=== PATIENT | female | born 1960 | race Caucasian/White ===

== ENCOUNTER 2017-11-25 10:04 | Inpatient (IN) | payer MEDICARE, OTHER ==
[~2017-11-25] VITALS: Ht 172.7 cm; Wt 104.9 kg
[~2017-11-25 10:04] MED LIST: AMLO5TAB16 PO; CHLO25TA11 PO; DULO60CA64 PO; HYDR-3686 PO; LINA145C PO; LOSA25TA21 PO; TRAZ-143 PO; ZIPR20CA12 PO
[2017-11-25 10:46] LABS: BASOPHILS % (AUTO) 0.3 % (0-1); EOSINOPHILS # (AUTO) 0.1 X10'3 (0-0.9); EOSINOPHILS % (AUTO) 1.4 % (0-6); HEMATOCRIT 44.8 % (35.0-45.0); HEMOGLOBIN 14.9 g/dl (12.0-16.0); LYMPHOCYTES # (AUTO) 1.7 X10'3 (1.1-4.8); LYMPHOCYTES % (AUTO) 33.5 % (21-51); MEAN CORPUSCULAR HEMOGLOBIN 29.2 PG (27.0-31.0); MEAN CORPUSCULAR HGB CONC 33.2 % (33.0-36.5); MEAN PLATELET VOLUME 8.4 FL (7.4-10.4); MONOCYTES # (AUTO) 0.5 X10'3 (0-0.9); MONOCYTES % (AUTO) 8.8 % (2-12); NEUTROPHILS # (AUTO) 2.9 X10'3 (1.8-7.7); PLATELET COUNT 219 X10'3 (140-440); RED BLOOD COUNT 5.09 X10'6 (4.20-5.60); RED CELL DISTRIBUTION WIDTH 13.6 % (11.5-14.5); WHITE BLOOD COUNT 5.2 X10'3 (4.5-11.0)
[2017-11-25 10:58] LABS: PARTIAL THROMBOPLASTIN TIME 25 SECONDS (22-32); PROTHROMBIN TIME 10.5 SECONDS (9.0-12.0)
[2017-11-25 11:05] LABS: ALANINE AMINOTRANSFERASE 17 U/L (12-78); ALBUMIN 3.7 G/DL (3.4-5.0); ALBUMIN/GLOBULIN RATIO 0.9 (1.1-1.5); ALKALINE PHOSPHATASE 62 IU/L (46-116); ANION GAP 10 (8-16); ASPARTATE AMINO TRANSFERASE 7 U/L (10-37); BILIRUBIN,TOTAL 0.6 MG/DL (0.1-1.0); BLOOD UREA NITROGEN 15 MG/DL (7-18); BUN/CREATININE RATIO 15.6 (6.6-38.0); CALCIUM 9.4 MG/DL (8.5-10.1); CHLORIDE 110 MMOL/L (99-107); CREATININE 0.96 MG/DL (0.40-0.90); GLUCOSE 111 MG/DL (70-104); POTASSIUM 3.9 MMOL/L (3.5-5.1); SODIUM 144 MMOL/L (135-145); TOTAL CARBON DIOXIDE 23.6 MMOL/L (24-32); TOTAL PROTEIN 7.8 G/DL (6.4-8.2); eGFR 60 ML/MIN
[2017-11-25 11:08] LABS: TROPONIN I < 0.04 NG/ML (0.0-0.05)
[2017-11-25] MEDS: normal saline 1000ml 1,000 ML IV SCH (12:58)
[2017-11-25] MEDS ORDERED: potassium Cl 20 mEq SR tablet PO PRN (13:00)
[2017-11-25] MEDS ORDERED: ondansetron/PF 4mg/2ml inj IV PRN (13:00)
[2017-11-25] MEDS ORDERED: magnesium Cl slow-release 64mg tablet PO PRN (13:00)
[2017-11-25] MEDS ORDERED: potassium Cl 40MEQ/NS 500ml 500 ML IV PRN ×2 (13:00)
[2017-11-25] MEDS ORDERED: acetaminophen 325mg tablet PO PRN (13:00)
[2017-11-25] MEDS ORDERED: magnesium 2GM in 50ml NS 50 ML IV PRN (13:00)
[2017-11-25] MEDS ORDERED: magnesium 4gm in 100ml NS 100 ML IV PRN (13:00)
[2017-11-25] MEDS ORDERED: mag hydrox/Alum hydrox/simeth 30ml oral suspension PO PRN (13:00)
[2017-11-25 13:43] LABS: CHOL/HDL RATIO 2.3 (0.00-4.99); CHOLESTEROL 115 MG/DL (0-200); HDL CHOLESTEROL 50 MG/DL (35-60); LDL CHOLESTEROL 48 MG/DL (50-100); TRIGLYCERIDES 68 MG/DL (20-135)
[2017-11-25 13:59] LABS: URINE AMPHETAMINE SCREEN NEGATIVE (Neg); URINE BARBITUATE SCREEN NEGATIVE (Neg); URINE BENZODIAZEPINES SCREEN NEGATIVE (Neg); URINE CANNABINOID SCREEN POSITIVE (Neg); URINE COCAINE SCREEN NEGATIVE (Neg); URINE METHADONE SCREEN NEGATIVE (Neg); URINE OPIATE SCREEN NEGATIVE (Neg); URINE PHENCYCLIDINE SCREEN NEGATIVE (Neg)
[2017-11-25 15:25] VITALS: BP 158/99
[2017-11-25 18:00] VITALS: BP 148/80
[2017-11-25] MEDS: losartan 25mg tablet PO SCH (19:42)
[2017-11-25 22:00] VITALS: BP 159/83
[2017-11-26] MEDS: normal saline 1000ml 1,000 ML IV SCH ×4 (01:08→15:04)
[2017-11-26 01:53] VITALS: BP 187/94
[2017-11-26 06:00] VITALS: BP 164/94
[2017-11-26 07:03] LABS: BASOPHILS % (AUTO) 0.4 % (0-1); EOSINOPHILS # (AUTO) 0.1 X10'3 (0-0.9); EOSINOPHILS % (AUTO) 0.9 % (0-6); HEMATOCRIT 42.5 % (35.0-45.0); HEMOGLOBIN 14.2 g/dl (12.0-16.0); LYMPHOCYTES # (AUTO) 1.8 X10'3 (1.1-4.8); MEAN CORPUSCULAR HEMOGLOBIN 29.2 PG (27.0-31.0); MEAN CORPUSCULAR HGB CONC 33.4 % (33.0-36.5); MEAN CORPUSCULAR VOLUME 87.3 FL (78-98); MEAN PLATELET VOLUME 8.4 FL (7.4-10.4); MONOCYTES # (AUTO) 0.7 X10'3 (0-0.9); MONOCYTES % (AUTO) 10.5 % (2-12); NEUTROPHILS # (AUTO) 3.9 X10'3 (1.8-7.7); NEUTROPHILS % (AUTO) 60.2 % (42-75); PLATELET COUNT 202 X10'3 (140-440); RED BLOOD COUNT 4.87 X10'6 (4.20-5.60); RED CELL DISTRIBUTION WIDTH 13.3 % (11.5-14.5); WHITE BLOOD COUNT 6.4 X10'3 (4.5-11.0)
[2017-11-26 07:12] LABS: ALBUMIN 3.5 G/DL (3.4-5.0); ANION GAP 11 (8-16); BLOOD UREA NITROGEN 12 MG/DL (7-18); BUN/CREATININE RATIO 14.5 (6.6-38.0); CALCIUM 9.2 MG/DL (8.5-10.1); CHLORIDE 109 MMOL/L (99-107); CREATININE 0.83 MG/DL (0.40-0.90); GLUCOSE 108 MG/DL (70-104); MAGNESIUM 2.1 MG/DL (1.5-2.4); POTASSIUM 3.4 MMOL/L (3.5-5.1); SODIUM 143 MMOL/L (135-145); TOTAL CARBON DIOXIDE 23.1 MMOL/L (24-32); eGFR 71 ML/MIN
[2017-11-26] MEDS: K and/or MAG REPLACEMENT MC SCH (08:00)
[2017-11-26] MEDS: losartan 25mg tablet PO SCH ×2 (08:43→19:33)
[2017-11-26] MEDS: aspirin 325mg tablet PO SCH (08:44)
[2017-11-26] MEDS: enoxaparin 40mg/0.4ml syringe SUBCUT SCH (08:44)
[2017-11-26] MEDS: chlorthalidone 25mg tablet PO SCH (08:44)
[2017-11-26] MEDS: amLODIPine 5mg tablet PO SCH (08:44)
[2017-11-26] MEDS: potassium Cl 20 mEq SR tablet PO PRN ×2 (08:48→15:17)
[2017-11-26 12:00] VITALS: BP 163/84
[2017-11-26 13:10] VITALS: BP 156/94
[2017-11-26 16:20] VITALS: BP 160/92
[2017-11-26 20:00] VITALS: BP 170/95
[2017-11-27] VITALS (7 sets, daily range): BP systolic 145–171; BP diastolic 89–112
[2017-11-27] MEDS: normal saline 1000ml 1,000 ML IV SCH (02:36)
[2017-11-27 05:47] LABS: BASOPHILS % (AUTO) 0.3 % (0-1); EOSINOPHILS # (AUTO) 0.1 X10'3 (0-0.9); EOSINOPHILS % (AUTO) 0.6 % (0-6); HEMATOCRIT 46.6 % (35.0-45.0); HEMOGLOBIN 15.6 g/dl (12.0-16.0); LYMPHOCYTES % (AUTO) 23.7 % (21-51); MEAN CORPUSCULAR HEMOGLOBIN 29.3 PG (27.0-31.0); MEAN CORPUSCULAR HGB CONC 33.4 % (33.0-36.5); MEAN CORPUSCULAR VOLUME 87.7 FL (78-98); MEAN PLATELET VOLUME 8.5 FL (7.4-10.4); MONOCYTES # (AUTO) 0.9 X10'3 (0-0.9); NEUTROPHILS # (AUTO) 5.5 X10'3 (1.8-7.7); NEUTROPHILS % (AUTO) 64.4 % (42-75); PLATELET COUNT 227 X10'3 (140-440); RED BLOOD COUNT 5.31 X10'6 (4.20-5.60); RED CELL DISTRIBUTION WIDTH 13.8 % (11.5-14.5); WHITE BLOOD COUNT 8.5 X10'3 (4.5-11.0)
[2017-11-27 06:02] LABS: ALBUMIN 3.7 G/DL (3.4-5.0); ANION GAP 13 (8-16); BLOOD UREA NITROGEN 18 MG/DL (7-18); BUN/CREATININE RATIO 18.9 (6.6-38.0); CALCIUM 9.5 MG/DL (8.5-10.1); CHLORIDE 105 MMOL/L (99-107); CREATININE 0.95 MG/DL (0.40-0.90); GLUCOSE 113 MG/DL (70-104); MAGNESIUM 2.1 MG/DL (1.5-2.4); POTASSIUM 3.7 MMOL/L (3.5-5.1); SODIUM 140 MMOL/L (135-145); eGFR 61 ML/MIN
[2017-11-27] MEDS: chlorthalidone 25mg tablet PO SCH (07:46)
[2017-11-27] MEDS: aspirin 325mg tablet PO SCH (07:46)
[2017-11-27] MEDS: amLODIPine 5mg tablet PO SCH (07:46)
[2017-11-27] MEDS: losartan 25mg tablet PO SCH ×2 (07:46→19:30)
[2017-11-27] MEDS: enoxaparin 40mg/0.4ml syringe SUBCUT SCH (07:47)
[2017-11-27] MEDS: K and/or MAG REPLACEMENT MC SCH (08:00)
[2017-11-27] MEDS ORDERED: amLODIPine 5mg tablet PO ONE (10:25)
[2017-11-27] MEDS ORDERED: iohexol 350 MG/ML 50ML vial IV ONE (14:52)
[2017-11-28] VITALS: BP 157/107
[2017-11-28] MEDS: magnesium hydroxide 30ml (MOM) UD suspension PO PRN ×2 (01:01→18:12)
[2017-11-28 06:00] VITALS: BP 158/90
[2017-11-28 06:59] LABS: BASOPHILS % (AUTO) 0.3 % (0-1); EOSINOPHILS # (AUTO) 0.2 X10'3 (0-0.9); EOSINOPHILS % (AUTO) 1.7 % (0-6); HEMATOCRIT 49.2 % (35.0-45.0); HEMOGLOBIN 16.4 g/dl (12.0-16.0); LYMPHOCYTES # (AUTO) 2.5 X10'3 (1.1-4.8); LYMPHOCYTES % (AUTO) 25.4 % (21-51); MEAN CORPUSCULAR HEMOGLOBIN 28.9 PG (27.0-31.0); MEAN CORPUSCULAR HGB CONC 33.2 % (33.0-36.5); MEAN CORPUSCULAR VOLUME 86.9 FL (78-98); MEAN PLATELET VOLUME 8.3 FL (7.4-10.4); NEUTROPHILS # (AUTO) 6.1 X10'3 (1.8-7.7); NEUTROPHILS % (AUTO) 62.6 % (42-75); PLATELET COUNT 269 X10'3 (140-440); RED BLOOD COUNT 5.66 X10'6 (4.20-5.60); RED CELL DISTRIBUTION WIDTH 13.4 % (11.5-14.5); WHITE BLOOD COUNT 9.7 X10'3 (4.5-11.0)
[2017-11-28 07:16] LABS: CLARITY,URINE Clear (Clear); COLOR,URINE Yellow (Yellow); GLUCOSE, URINE Negative (Neg); KETONES,URINE Negative (Neg); LEUKOCYTE ESTERASE ,URINE Moderate (Neg); NITRITES, URINE Negative (Neg); OCCULT BLOOD,URINE Negative (Neg); PROTEIN,URINE Negative (Neg)
[2017-11-28 07:22] LABS: UA COLLECTION TYPE OTHER
[2017-11-28 07:25] LABS: BACTERIA,URINE 1+ /HPF (Neg); MUCUS STRANDS NONE SEEN /LPF (Neg); RBC,URINE NONE SEEN /HPF (0-2); SQUAMOUS EPITHELIAL CELL,UR MODERATE /LPF (FEW)
[2017-11-28 07:40] LABS: ANION GAP 14 (8-16); BLOOD UREA NITROGEN 24 MG/DL (7-18); CALCIUM 10.1 MG/DL (8.5-10.1); CHLORIDE 104 MMOL/L (99-107); CREATININE 1.26 MG/DL (0.40-0.90); GLUCOSE 139 MG/DL (70-104); MAGNESIUM 2.2 MG/DL (1.5-2.4); POTASSIUM 3.6 MMOL/L (3.5-5.1); SODIUM 140 MMOL/L (135-145); TOTAL CARBON DIOXIDE 21.6 MMOL/L (24-32); eGFR 44 ML/MIN
[2017-11-28] MEDS: K and/or MAG REPLACEMENT MC SCH (08:00)
[2017-11-28] MEDS: aspirin 325mg tablet PO SCH (09:12)
[2017-11-28] MEDS: losartan 25mg tablet PO SCH ×2 (09:12→21:37)
[2017-11-28] MEDS: amLODIPine 5mg tablet PO SCH (09:12)
[2017-11-28] MEDS: chlorthalidone 25mg tablet PO SCH (09:12)
[2017-11-28] MEDS: enoxaparin 40mg/0.4ml syringe SUBCUT SCH (09:13)
[2017-11-28 10:00] VITALS: BP 142/93
[2017-11-28 14:54] LABS: C-REACTIVE PROTEIN 0.91 MG/DL (0.0-0.5)
[2017-11-28 15:00] VITALS: BP 137/76
[2017-11-28] MEDS: carVEDilol 3.125mg tablet PO SCH ×2 (15:14→21:37)
[2017-11-28 15:41] LABS: RHEUM FACTOR QUAL REFLEX TITER NEGATIVE (Neg)
[2017-11-29 06:00] VITALS: BP 129/75
[2017-11-29 06:45] LABS: BASOPHILS % (AUTO) 0.2 % (0-1); EOSINOPHILS # (AUTO) 0.1 X10'3 (0-0.9); EOSINOPHILS % (AUTO) 1.4 % (0-6); HEMATOCRIT 46.9 % (35.0-45.0); HEMOGLOBIN 15.5 g/dl (12.0-16.0); LYMPHOCYTES # (AUTO) 2.6 X10'3 (1.1-4.8); LYMPHOCYTES % (AUTO) 26.3 % (21-51); MEAN CORPUSCULAR HEMOGLOBIN 28.9 PG (27.0-31.0); MEAN CORPUSCULAR HGB CONC 33.1 % (33.0-36.5); MEAN CORPUSCULAR VOLUME 87.5 FL (78-98); MEAN PLATELET VOLUME 8.6 FL (7.4-10.4); MONOCYTES # (AUTO) 1.2 X10'3 (0-0.9); MONOCYTES % (AUTO) 11.9 % (2-12); NEUTROPHILS % (AUTO) 60.2 % (42-75); PLATELET COUNT 269 X10'3 (140-440); RED BLOOD COUNT 5.36 X10'6 (4.20-5.60); RED CELL DISTRIBUTION WIDTH 14.1 % (11.5-14.5)
[2017-11-29 06:56] LABS: ALBUMIN 3.8 G/DL (3.4-5.0); ANION GAP 15 (8-16); BLOOD UREA NITROGEN 36 MG/DL (7-18); BUN/CREATININE RATIO 24.8 (6.6-38.0); CHLORIDE 106 MMOL/L (99-107); CREATININE 1.45 MG/DL (0.40-0.90); GLUCOSE 117 MG/DL (70-104); MAGNESIUM 2.4 MG/DL (1.5-2.4); POTASSIUM 3.5 MMOL/L (3.5-5.1); SODIUM 141 MMOL/L (135-145); TOTAL CARBON DIOXIDE 19.9 MMOL/L (24-32); eGFR 37 ML/MIN
[2017-11-29] MEDS: K and/or MAG REPLACEMENT MC SCH (08:00)
[2017-11-29] MEDS: amLODIPine 5mg tablet PO SCH (08:51)
[2017-11-29] MEDS: carVEDilol 3.125mg tablet PO SCH ×2 (08:51→20:37)
[2017-11-29] MEDS: clopidogrel 75mg tablet PO SCH (08:51)
[2017-11-29] MEDS: losartan 25mg tablet PO SCH ×2 (08:52→20:38)
[2017-11-29] MEDS: enoxaparin 40mg/0.4ml syringe SUBCUT SCH (08:52)
[2017-11-29 11:55] VITALS: BP 122/73
[2017-11-29 17:00] VITALS: BP 118/87
[2017-11-29 22:00] VITALS: BP 107/62
[2017-11-30 05:00] VITALS: BP 96/70
[2017-11-30 06:21] LABS: BASOPHILS % (AUTO) 0.3 % (0-1); EOSINOPHILS # (AUTO) 0.1 X10'3 (0-0.9); EOSINOPHILS % (AUTO) 1.7 % (0-6); HEMATOCRIT 42.3 % (35.0-45.0); HEMOGLOBIN 14.1 g/dl (12.0-16.0); LYMPHOCYTES # (AUTO) 2.6 X10'3 (1.1-4.8); MEAN CORPUSCULAR HEMOGLOBIN 29.2 PG (27.0-31.0); MEAN CORPUSCULAR HGB CONC 33.4 % (33.0-36.5); MEAN CORPUSCULAR VOLUME 87.6 FL (78-98); MEAN PLATELET VOLUME 8.3 FL (7.4-10.4); MONOCYTES # (AUTO) 0.9 X10'3 (0-0.9); MONOCYTES % (AUTO) 11.1 % (2-12); NEUTROPHILS # (AUTO) 4.4 X10'3 (1.8-7.7); NEUTROPHILS % (AUTO) 54.9 % (42-75); PLATELET COUNT 236 X10'3 (140-440); RED BLOOD COUNT 4.83 X10'6 (4.20-5.60); RED CELL DISTRIBUTION WIDTH 13.9 % (11.5-14.5)
[2017-11-30 06:55] LABS: ALBUMIN 3.4 G/DL (3.4-5.0); ANION GAP 10 (8-16); BLOOD UREA NITROGEN 60 MG/DL (7-18); BUN/CREATININE RATIO 31.6 (6.6-38.0); CALCIUM 9.2 MG/DL (8.5-10.1); CHLORIDE 101 MMOL/L (99-107); GLUCOSE 97 MG/DL (70-104); MAGNESIUM 2.6 MG/DL (1.5-2.4); POTASSIUM 3.5 MMOL/L (3.5-5.1); SODIUM 137 MMOL/L (135-145); TOTAL CARBON DIOXIDE 25.6 MMOL/L (24-32); eGFR 27 ML/MIN
[2017-11-30] MEDS: K and/or MAG REPLACEMENT MC SCH (08:00)
[2017-11-30] MEDS: carVEDilol 3.125mg tablet PO SCH ×2 (09:39→20:00)
[2017-11-30] MEDS: losartan 25mg tablet PO SCH ×2 (09:39→20:00)
[2017-11-30] MEDS: amLODIPine 5mg tablet PO SCH (09:39)
[2017-11-30] MEDS: clopidogrel 75mg tablet PO SCH (09:41)
[2017-11-30] MEDS: enoxaparin 40mg/0.4ml syringe SUBCUT SCH (09:42)
[2017-11-30 10:00] VITALS: BP 119/70
[2017-11-30] MEDS: duloxetine 30mg CAPSULE.DR PO SCH (11:19)
[2017-11-30] MEDS: levoFLOXACIN 500mg tablet PO SCH (11:19)
[2017-11-30 18:00] VITALS: BP 107/69
[2017-11-30] MEDS: ziprasidone 20mg capsule PO SCH (20:10)
[2017-11-30 22:00] VITALS: BP 125/63
[2017-12-01 05:00] VITALS: BP 141/89
[2017-12-01] MEDS: duloxetine 30mg CAPSULE.DR PO SCH (09:54)
[2017-12-01] MEDS: LACTOBACILLUS RHAMNOSUS GG 15 billion unit sprinkle caps PO SCH (09:54)
[2017-12-01] MEDS: carVEDilol 3.125mg tablet PO SCH ×2 (09:54→20:43)
[2017-12-01] MEDS: ziprasidone 20mg capsule PO SCH ×2 (09:54→20:43)
[2017-12-01] MEDS: losartan 25mg tablet PO SCH ×2 (09:54→20:43)
[2017-12-01] MEDS: clopidogrel 75mg tablet PO SCH (09:55)
[2017-12-01] MEDS: amLODIPine 5mg tablet PO SCH (09:55)
[2017-12-01] MEDS: K and/or MAG REPLACEMENT MC SCH (09:55)
[2017-12-01] MEDS: enoxaparin 40mg/0.4ml syringe SUBCUT SCH (09:56)
[2017-12-01 10:00] VITALS: BP 160/74
[2017-12-01] MEDS: levoFLOXACIN 500mg tablet PO SCH (11:10)
[2017-12-01 18:00] VITALS: BP 127/68
[2017-12-02 05:00] VITALS: BP 122/77
[2017-12-02] MEDS: K and/or MAG REPLACEMENT MC SCH (07:43)
[2017-12-02] MEDS: LACTOBACILLUS RHAMNOSUS GG 15 billion unit sprinkle caps PO SCH (07:46)
[2017-12-02] MEDS: duloxetine 30mg CAPSULE.DR PO SCH (07:46)
[2017-12-02] MEDS: clopidogrel 75mg tablet PO SCH (07:46)
[2017-12-02] MEDS: carVEDilol 3.125mg tablet PO SCH (07:46)
[2017-12-02] MEDS: losartan 25mg tablet PO SCH (07:46)
[2017-12-02] MEDS: ziprasidone 20mg capsule PO SCH (07:46)
[2017-12-02] MEDS: amLODIPine 5mg tablet PO SCH (07:47)
[2017-12-02] MEDS: enoxaparin 40mg/0.4ml syringe SUBCUT SCH (07:47)
[2017-12-02 10:00] VITALS: BP 114/60
[2017-12-02] MEDS: levoFLOXACIN 500mg tablet PO SCH (11:51)
[2017-12-02] MEDS ORDERED: CLOP75TA35 PO (11:53)
[2017-12-02] MEDS ORDERED: COR3.125T PO (11:53)
[2017-12-02] MEDS ORDERED: LEVO500T89 PO (11:53)
[2017-12-02] MEDS ORDERED: ATOR10TA PO (11:55)
== END 2017-12-02 12:30 | disposition home health service (06) | DRG 64 ==
LOC: ER 10:05 → ED HOLD 12:58 → ORTHO 4S 15:15
PROVIDERS: ADMIT Internal Medicine; ATTEND Family Medicine
PROC: B3251ZZ Computerized Tomography (CT Scan) of Bilateral Common Carotid Arteries using Low Osmolar Contrast (ICD-10-PCS; principal; 2017-11-27)
PROC: B32G1ZZ Computerized Tomography (CT Scan) of Bilateral Vertebral Arteries using Low Osmolar Contrast (ICD-10-PCS; 2017-11-27)
PROC: B3281ZZ Computerized Tomography (CT Scan) of Bilateral Internal Carotid Arteries using Low Osmolar Contrast (ICD-10-PCS; 2017-11-27)
DX: I63.212 Cerebral infarction due to unspecified occlusion or stenosis of left vertebral artery (principal); G93.41 Metabolic encephalopathy; N17.9 Acute kidney failure, unspecified; K22.0 Achalasia of cardia; F20.0 Paranoid schizophrenia; I48.91 Unspecified atrial fibrillation; M05.20 Rheumatoid vasculitis with rheumatoid arthritis of unspecified site; R47.01 Aphasia; F41.8 Other specified anxiety disorders; R47.81 Slurred speech; E87.6 Hypokalemia; E11.9 Type 2 diabetes mellitus without complications; E78.5 Hyperlipidemia, unspecified; F32.9 Major depressive disorder, single episode, unspecified; I10 Essential (primary) hypertension; Z98.891 History of uterine scar from previous surgery; Z79.82 Long term (current) use of aspirin; Z79.899 Other long term (current) drug therapy; Z79.01 Long term (current) use of anticoagulants; Z82.49 Family history of ischemic heart disease and other diseases of the circulatory system
CPT/HCPCS: 36415; 70450; 70496; 70551; 71010; 80048; 80053; 80061; 80305; 80320; 81001; 82140; 82948; 83735; 84484; 85025; 85610; 85651; 85730; 86038; 86140; 86430; 87070; 87077; 87088; 87186; 92616; 93005; 93306; 93880; 97110; 97116; 97162; 97530; 99285; A4310; J1650; J7030; Q9967

== ENCOUNTER 2023-07-05 10:01 | Emergency (ER) | payer MEDICARE, OTHER ==
[~2023-07-05] VITALS: Ht 172.7 cm; Wt 120.0 kg
[~2023-07-05 10:01] MED LIST changes: +ATOR10TA PO; +CLOP75TA34 PO; +COR3.125T PO; -DULO60CA64 PO; +DULO60CA65 PO; +LEVO-65 PO; -LOSA25TA21 PO; +LOSA25TA41 PO; -TRAZ-143 PO; +TRAZ-251 PO
[2023-07-05 10:15] LABS: BASOPHILS % (AUTO) 0.4 % (0-1); EOSINOPHILS % (AUTO) 0.4 % (0-6); HEMATOCRIT 46.3 % (35.0-45.0); HEMOGLOBIN 15.5 g/dl (12.0-16.0); LYMPHOCYTES # (AUTO) 1.6 X10'3 (1.1-4.8); MEAN CORPUSCULAR HEMOGLOBIN 28.7 PG (27.0-31.0); MEAN CORPUSCULAR HGB CONC 33.6 g/dL (33.0-36.5); MEAN CORPUSCULAR VOLUME 85.5 FL (78-98); MEAN PLATELET VOLUME 7.1 FL (7.4-10.4); MONOCYTES # (AUTO) 0.8 X10'3 (0-0.9); MONOCYTES % (AUTO) 7.8 % (2-12); NEUTROPHILS # (AUTO) 7.5 X10'3 (1.8-7.7); NEUTROPHILS % (AUTO) 75.4 % (42-75); PLATELET COUNT 373 X10'3 (140-440); RED BLOOD COUNT 5.42 X10'6 (4.20-5.60); RED CELL DISTRIBUTION WIDTH 14.8 % (11.5-14.5); WHITE BLOOD COUNT 9.9 X10'3 (4.5-11.0)
[2023-07-05 10:32] LABS: ALANINE AMINOTRANSFERASE 32 U/L (12-78); ALBUMIN 4.1 G/DL (3.4-5.0); ALBUMIN/GLOBULIN RATIO 0.9 (1.1-1.5); ALKALINE PHOSPHATASE 115 IU/L (46-116); ANION GAP 11 (8-16); ASPARTATE AMINO TRANSFERASE 19 U/L (10-37); BLOOD UREA NITROGEN 15 MG/DL (7-18); BUN/CREATININE RATIO 16.9 (10.0-20.0); CALCIUM 9.9 MG/DL (8.5-10.1); CHLORIDE 101 MMOL/L (99-107); CREATININE 0.89 MG/DL (0.40-0.90); GLUCOSE 115 MG/DL (70-104); POTASSIUM 3.6 MMOL/L (3.5-5.1); SODIUM 136 MMOL/L (135-145); TOTAL CARBON DIOXIDE 24.3 MMOL/L (24-32); TOTAL PROTEIN 8.9 G/DL (6.4-8.2); eGFR 65 ML/MIN
[2023-07-05 11:04] LABS: APTT 28 SECONDS (22-32)
[2023-07-05 12:51] LABS: CLARITY,URINE CLEAR (Clear); COLOR,URINE YELLOW (Yellow); GLUCOSE, URINE NEGATIVE (Neg); KETONES,URINE NEGATIVE (Neg); LEUKOCYTE ESTERASE ,URINE NEGATIVE (Neg); NITRITES, URINE NEGATIVE (Neg); OCCULT BLOOD,URINE NEGATIVE (Neg); PROTEIN,URINE 30 mg/dl (Neg); UROBILINOGEN,URINE 0.2 E.U/dL (0.2-1.0)
[2023-07-05 12:54] LABS: UA COLLECTION TYPE CLN CATCH MIDSTREAM
[2023-07-05] MEDS ORDERED: amLODIPine 5mg tablet PO ONE (13:00)
[2023-07-05 13:02] VITALS: BP_DIAS 99; RESP 21; TEMP 98.4; O2SAT 97
[2023-07-05] MEDS ORDERED: ROSU20TA2 PO ×2 (13:02→13:11)
[2023-07-05] MEDS ORDERED: ZIPR60CA7 PO ×2 (13:02→13:11)
[2023-07-05 13:05] VITALS: BP_SYST 197; PULSE 67
[2023-07-05] MEDS ORDERED: AMLO10TA PO (13:11)
[2023-07-05 13:17] LABS: BACTERIA,URINE 1+ /HPF (Neg); RBC,URINE NONE SEEN /HPF (0-2); SQUAMOUS EPITHELIAL CELL,UR FEW /LPF (FEW)
== END 2023-07-05 13:40 | disposition home or self-care (01) ==
LOC: ER 10:01
DX: R35.0 Frequency of micturition (principal); R41.0 Disorientation, unspecified; I10 Essential (primary) hypertension; I11.0 Hypertensive heart disease with heart failure; E78.00 Pure hypercholesterolemia, unspecified; F31.9 Bipolar disorder, unspecified; F20.9 Schizophrenia, unspecified
CPT/HCPCS: 36415; 70450; 71045; 80053; 81001; 82948; 83880; 84484; 85025; 85610; 85730; 87077; 87088; 87186; 93005; 99285